=== PATIENT | female | born 1990 | race Caucasian/White ===

== ENCOUNTER 2019-07-20 01:19 | Emergency (ER) | payer BC ==
[~2019-07-20] VITALS: Ht 172.7 cm; Wt 82.0 kg
[2019-07-20 01:29] VITALS: BP 110/69
--- NOTE | 2019-07-20 01:36 | NUR ---
cassandra rn: pt bib remsa for glf in bathroom at [facility]. pt not compliant with complete exam. emesis bag given. spouse at bs, side rails up and bed locked in low position with call light in bed. explained poc to pt.
--- NOTE | 2019-07-20 04:47 | NUR ---
PT AMBULATORY TO THE BATHROOM AND DISCHARGE DESK WITH STEADY GAIT. PT TO BE DISCHARGED WITH A TAXI VOUCHER AND WITH HER .
== END 2019-07-20 04:54 | disposition home or self-care (01) ==
LOC: ED 04:45
DX: F10.220 Alcohol dependence with intoxication, uncomplicated (principal); Z72.9 Problem related to lifestyle, unspecified; Y90.9 Presence of alcohol in blood, level not specified
CPT/HCPCS: 99283